=== PATIENT | male | born 1990 | race Hispanic/Latino ===

== ENCOUNTER 2024-03-19 09:16 | Emergency (ER) | payer SELFPAY ==
[~2024-03-19] VITALS: Ht 172.7 cm; Wt 58.5 kg
[2024-03-19 09:18] VITALS: BP 140/80; PULSE 114; RESP 18; TEMP 97.3
[2024-03-19] MEDS ORDERED: IBUP-2077 PO (12:13)
== END 2024-03-19 09:59 | disposition left against medical advice (07) ==
LOC: EDH 09:16
DX: G89.29 Other chronic pain (principal); M25.561 Pain in right knee; Z53.21 Procedure and treatment not carried out due to patient leaving prior to being seen by health care provider

== ENCOUNTER 2024-03-19 11:51 | Emergency (ER) | payer SELFPAY ==
[~2024-03-19] VITALS: Ht 172.7 cm; Wt 59.0 kg
[2024-03-19] MEDS ORDERED: IBUP-2077 PO (12:13)
--- NOTE | 2024-03-19 12:13 | ERN ---
ED Note History of Present Illness Stated Complaint: HEADACHE Time Seen by MD: 11:54 Dictation: PATIENT IS A 33-YEAR-OLD MALE COMING IN TODAY WITH COMPLAINTS OF A FRONTAL HEADACHE AND SINUS PRESSURE HE HAS HAD FOR SEVERAL DAYS AND HE FEELS IT IN HIS FRONTAL LOBE. NO FEVER NO CHILLS NO NAUSEA VOMITING NO SINUS CONGESTION. NO LOSS OF TASTE OR SMELL DOES NOT HAVE A PRIMARY CARE DOCTOR. WHEN I ASKED HIM IF HE HAD TAKEN ANYTHING FOR PAIN, HE STATES NO BECAUSE I CAN FEEL THE ASPIRIN OR TYLENOL COME THROUGH MY POISON I CAN SMELL AT. [facility] IS 0 Allergies: Coded Allergies: No Known Drug Allergies (Unverified Allergy, Unknown, 03/19/24) Past Medical History Past Medical History: No Pertinent History Surgical History: None PSYCH History: no pertinent psych hx RN Note Reviewed/Agreed w/PFSH: Yes Review of System Dictation CONSTITUTIONAL: NEGATIVE EXCEPT FOR HPI HEAD/FACE: NEGATIVE EXCEPT FOR HPI EENT: NEGATIVE EXCEPT FOR HPI RESPIRATORY: NEGATIVE EXCEPT FOR HPI GASTROINTESTINAL/ABDOMINAL: NEGATIVE EXCEPT FOR HPI GENITOURINARY: NEGATIVE EXCEPT FOR HPI MUSCULOSKELETAL: NEGATIVE EXCEPT FOR HPI INTEGUMENTARY: NEGATIVE EXCEPT FOR HPI NEUROLOGICAL/PSYCH: NEGATIVE EXCEPT FOR HPI FRONTAL SINUS HEADACHE HEMATOLOGIC/LYMPHATIC: NEGATIVE EXCEPT FOR HPI ALL SYSTEMS NEGATIVE, EXCEPT NOTED ABOVE. 13 POINT REVIEW OF SYSTEMS ASSESSED AND ALL NEGATIVE EXCEPT FOR ABOVE. Physical Exam Dictation VITAL SIGNS REVIEWED GENERAL APPEARANCE: ALERT, ORIENTED X 3, MILD ACUTE DISTRESS, WELL DEVELOPED, NOURISHED. HEAD AND FACE: NON-TRAUMATIC. BILATERAL FRONTAL SINUS TENDERNESS WITH PALPATION EYES: PERRL, PINK CONJUNCTIVAS, EYELID NO TRAUMA, ANTERIOR CHAMBER WITH ARCUS SENILIS. EARS: PINNAS INTACT AND NO SIGNS OF TRAUMA OR ERYTHEMA EAR CANALS CLEAR AND NO DISCHARGE TM NO ERYTHEMA NOSE: NO DISCHARGE, NO BLEEDING. OROPHARYNX: MOUTH NORMAL, TONGUE PINK, PHARYNX CLEAR,NO ERYTHEMA, TONSILS NO EXUDATES, NO ABSCESSES NOTED, MUCOUS MEMBRANE MOIST NECK: SUPPLE, NON-TENDER, NO THYROMEGALY, NO MASSES, NO JVD, NO BRUITS BREAST:DEFERRED CHEST:NO TENDERNESS, NO CREPITUS, NO PARADOXICAL MOVEMENT, NO RETRACTIONS LUNGS:CLEAR, WELL-VENTILATED, SYMMETRIC, NO RALES, NO WHEEZING, NO RHONCHI, NO STRIDOR, GOOD BREATH SOUNDS BILATERALLY HEART: REGULAR RATE, REGULAR RHYTHM, NO MURMUR, NO GALLOPS VASCULAR: NO PERIPHERAL EDEMA, ABDOMEN: SOFT, POSITIVE BOWEL SOUNDS, NONDISTENDED, NO GUARDING, NONTENDER, NO REBOUND, NO MASSES NO HEPATOMEGALY, NO SPLENOMEGALY, NO MASON'S SIGN, NO HERNIAS. RECTAL: DEFERRED GENITAL: DEFERRED NEUROLOGICAL: NORMAL SPEECH, MOTOR FUNCTION INTACT, SENSORY FUNCTION INTACT [facility] IS 0 MUSCULOSKELETAL: NECK NONTENDER, FULL RANGE OF MOTION, BACK NONTENDER, FULL RANGE OF MOTION, EXTREMITIES: NONTENDER, FULL RANGE OF MOTION SKIN: COLOR PINK, DRY, NO TURGOR, NO RASH, NO LACERATIONS, NO ABRASIONS, NO CONTUSIONS. LYMPHATIC: DEFERRED Results (Laboratory/Radiology) Labs Reviewed?: Yes ED Course ED Course Orders Procedure Category Date Status Time Ketorolac 60mg/2ml PHA 03/19/24 Transmitted (Toradol 60mg/2ml) 12:30 TWELVE 10, NO LABS OR IMAGING INDICATED WE WILL TREAT PATIENT FOR PAIN AND DISCHARGED WITH LIST OF DOCTORS AND IBUPROFEN. Medical Decision Making MDM MEDICAL DISCHARGE MAKING BASED ON EMPIRIC TREATMENT FOR A SINUS HEADACHE WITH A AN NSAID. PATIENT DISCHARGED HOME WITH IBUPROFEN AND LIST OF PRIMARY CARE DOCTORS TO FOLLOW UP WITH THE NEXT 1-2 DAYS. [facility] IS 0 NEUROLOGICALLY INTACT DX & DISP Disposition: Discharge Departure Impression: Primary Impression: Sinus headache Condition: Stable Scripts Ibuprofen (Ibuprofen 800 mg Tab) 800 Mg Tab 800 MG PO Q8H PRN for fever or pain, #30 TAB 0 Refills Prov: PRADEEP SINGLETARY BRIDGE [employer]CH[employer]IC 03/19/24 Additional Instructions: FOLLOW-UP WITH PRIMARY CARE PROVIDER IN 1 TO 2 DAYS. TAKE MEDICATIONS DIRECTED HERE IN THE EMERGENCY ROOM. OKAY TO CONTINUE HOME MEDICATIONS UNLESS OTHERWISE DISCUSSED DURING YOUR VISIT IN THE EMERGENCY ROOM TODAY. RETURN TO YOUR NEAREST EMERGENCY ROOM IF SYMPTOMS WORSEN OR IF THERE IS NO IMPROVEMENT. CALL 911 IF YOU NEED IMMEDIATE ASSISTANCE. TAKE TYLENOL OR MOTRIN [id number] NEEDED AND IF NO CONTRAINDICATIONS ARE PRESENT. INCREASE OR AL HYDRATION. A WOUND CULTURE OR URINE CULTURE WAS ORDERED HERE IN THE EMERGENCY ROOM DEPARTMENT PLEASE FOLLOW-UP WITH PRIMARY CARE PROVIDER AND ADVISE THEM TO GET REPEAT PORTS FROM OUR FACILITY. IF YOU HAD ANY HERMELINDA WRAP/SPLINTS THAT WERE APPLIED HERE, PLEASE DO NOT REMOVE THEM UNTIL YOU SEE YOUR PRIMARY CARE OR SPECIALTY. TAKE IBUPROFEN DIRECTED FOR PAIN WITH FOOD. INCREASE YOUR FLUID INTAKE AND SEE YOUR PRIMARY CARE DOCTOR OR FOLLOW UP WITH ONE Referrals: SELF,REFERRAL (PCP) Time of Disposition: 12:12 I have reviewed the case, and I agree with, Diagnosis and Plan PRADEEP SINGLETARY NP Mar 19, 2024 12:13
[2024-03-19] MEDS: ketOROlac 60 MG VIAL (30MG/ML) IM ONE (13:13)
[2024-03-19 13:40] VITALS: BP 122/59; PULSE 78; RESP 16; TEMP 98.1; O2SAT 98
== END 2024-03-19 13:41 | disposition home or self-care (01) ==
LOC: EDH 11:51
DX: R51.9 Headache, unspecified (principal)
CPT/HCPCS: 99283; 96372; J1885

== ENCOUNTER 2024-12-01 21:38 | Inpatient (IN) | payer SELFPAY ==
[~2024-12-01] VITALS: Ht 172.7 cm; Wt 67.9 kg
[~2024-12-01 21:38] MED LIST: IBUP-2077 PO
[2024-12-01 22:00] LABS: IMMATURE GRANULOCYTE ABSOLUTE 0.01 K/uL (0-1); NUCLEATED RED BLOOD CELLS 0.0 % (0.0-0.19); PLATELET COUNT (AUTO) 141 K/uL (130-400); RED BLOOD CELL COUNT(AUTO) 5.42 MIL/uL (4.50-6.20); RED CELL DISTRIBUTION WIDTH 11.9 % (11.0-15.5); WHITE BLOOD COUNT (AUTO) 6.3 K/uL (4.8-10.8)
[2024-12-01 22:07] LABS: CREATININE 0.9 mg/dL (0.5-1.3); GLOMERULAR FILTR. RATE CALC 116.0 mL/min (>90); GLUCOSE,RANDOM 91.0 mg/dL (70-105); SODIUM SERUM 142.0 mmol/L (136-145); UREA NITROGEN, BLOOD 13.0 mg/dL (7-18)
--- NOTE | 2024-12-01 22:29 | ERN ---
ED Note History of Present Illness Stated Complaint: CHEST PAIN Chief Complaint: Chest Pain Time Seen by MD: 21:46 Dictation: This is a 34-year-old male who presented to the emergency room with complaints of chest pain. And dyspnea even with minimal exertion going on for the past few weeks. He stated that about a month ago he overdosed on" bunch of pills" and alcohol intentionally and he was admitted eventually to psychiatric facility. Patient stated that since his discharge his stomach has never felt the same. He started drinking and smoking again. He stated that any flight of stairs or holding his get her and playing it is exhausting him and he experiences dyspnea. He also admits to some palpitations with any activity. No presyncope or syncopal episodes. No cough sputum or hemoptysis. Does have a history of bloating gastroesophageal symptoms. He has been taking [id number] generic medication for his heartburn and indigestion symptoms. He also stated that he could not afford the medication for depression and has been getting Prozac from [place]. Temperature 98 pulse 125 respirations 18 blood pressure 136/95 with a pulse oximetry of 96% on room air Allergies: Coded Allergies: No Known Drug Allergies (Unverified Allergy, Unknown, 03/19/24) Home Meds Active Scripts Ibuprofen (Ibuprofen 800 mg Tab) 800 Mg Tab, 800 MG PO Q8H PRN for fever or pain, #30 TAB 0 Refills Prov:PRADEEP SINGLETARY Malina ARROYO 03/19/24 Past Medical History Past Medical History: No Pertinent History, GERD Surgical History: None Family History: Negative Social History: Smokers, Drugs (History of crack), ETOH RN Note Reviewed/Agreed w/PFSH: Yes Review of System Dictation Constitutional: Negative for fever,chills, and weight loss Eyes: Negative for injury, pain,redness, and discharge ENT: Negative for injury,pain or swelling Cardiovascular: Positive for chest pain, palpitations, and edema Respiratory: Negative for shortness of breath, cough, and wheezing, Abdomen/GI: Negative for abdominal pain, nausea, vomiting, diarrhea, and constipation Back: Negative for injury and pain : Negative for injury, bleeding and discharge MS/Extremity: Negative for injury and deformity Skin: Negative for rash, and discoloration Neuro: Negative for headache, weakness, numbness, tingling, and seizure Psych: Negative for suicide ideation, homicidal ideation, and hallucinations Initial Vital Sign VS Vital Signs Date Time Temp Pulse Resp B/P (MAP) Pulse Ox O2 Delivery O2 Flow Rate FiO2 12/01/24 21:40 98.1 125 18 136/95 96 Room Air 0 12/01/24 22:52 21 Physical Exam Dictation General: awake, alert, NAD Head/Face: Normocephalic, atraumatic Eyes: PERRL, EOMI, vision at baseline ENT: oral cavity clear, TMs clear, no signs of infection Neck: Trachea midline, supple, no nuchal rigidity Cardiovascular: RRR, normal S1/S2, No MRGs, no JVD Respiratory: CTAB, no respiratory distress, No rales or wheezes Abdomen: Soft, non-tender, non-distended, normal bowel sounds, no guarding or rebound. Skin: Warm, dry, normal turgor, no rash MS/Extremity: Pulses equal, no cyanosis, neurovascular intact, FROM Neuro: COAx4, GCS 15, strength 5/5, CN 2-12 intact, normal cerebellar exam, normal gait, Psych: Normal behavior, mood, and affect normal Extremities-trace edema without any palpable cords, Homans sign is negative Results (Laboratory/Radiology) Laboratory/Radiology Laboratory Tests Test 12/01/24 21:51 12/01/24 22:43 White Blood Count 6.3 K/uL (4.8-10.8) Red Blood Count 5.42 MIL/uL (4.50-6.20) Hemoglobin 16.9 g/dL (14.0-18.0) Hematocrit 47.2 % (42-54) Mean Corpuscular Volume 87.1 fL (79-99) Mean Corpuscular Hemoglobin 31.2 pg (27.0-33.0) Mean Corpuscular Hemoglobin Concent 35.8 g/dL (32.0-36.0) Red Cell Distribution Width 11.9 % (11.0-15.5) Platelet Count 141 K/uL (130-400) Mean Platelet Volume 10.8 fL (7.5-10.5) H Immature Granulocyte % (Auto) 0.2 % (0-1) Neutrophils (%) (Auto) 51.3 % (40.0-77.0) Lymphocytes (%) (Auto) 30.3 % (21.0-51.0) Monocytes (%) (Auto) 15.6 % (3.0-13.0) H Eosinophils (%) (Auto) 2.1 % (0.0-8.0) Basophils (%) (Auto) 0.5 % (0.0-5.0) Neutrophils # (Auto) 3.2 K/uL (1.8-7.7) Lymphocytes # (Auto) 1.9 K/uL (1.0-4.8) Monocytes # (Auto) 1.0 K/uL (0.1-1.0) Eosinophils # (Auto) 0.13 K/uL (0.00-0.70) Basophils # (Auto) 0.03 K/uL (0.00-0.20) Absolute Immature Granulocyte (auto 0.01 K/uL (0-1) Nucleated Red Blood Cells 0.0 % (0.0-0.19) White Cell Morphology Comment See comments Sodium Level 142 mmol/L (136-145) Potassium Level 3.9 mmol/L (3.5-5.1) Chloride Level 104 mmol/L (101-111) Carbon Dioxide Level 26 mmol/L (21-32) Blood Urea Nitrogen 13 mg/dL (7-18) Creatinine 0.9 mg/dL (0.5-1.3) Glomerular Filtration Rate Calc 116 mL/min (>90) Random Glucose 91 mg/dL (70-105) Total Calcium 9.9 mg/dL (8.5-10.1) Total Creatine Kinase 71 U/L (21-232) Troponin I High Sensitivity 5 ng/L (4-75) Urine Color YELLOW (YELLOW) Urine Appearance CLEAR (CLEAR) Urine pH 6.0 (5.0-8.0) Urine Specific Avenel 1.027 (1.001-1.031) Urine Protein NEGATIVE mg/dL (NEGATIVE) Urine Glucose (UA) NEGATIVE mg/dL (NEGATIVE) Urine Ketones NEGATIVE mg/dL (NEGATIVE) Urine Occult Blood SMALL (NEGATIVE) H Urine Nitrate NEGATIVE (NEGATIVE) Urine Bilirubin NEGATIVE mg/dL (NEGATIVE) Urine Urobilinogen 0.2 mg/dL (0.2-1.0) Urine Leukocyte Esterase NEGATIVE Guy/uL Urine RBC 2-5 /HPF (0-1) H Urine WBC 0-1 /HPF (0-1) Urine Bacteria RARE /HPF (None Seen) Urine Opiates Screen NEGATIVE (NEGATIVE) Urine Barbiturates Screen NEGATIVE (NEGATIVE) Urine Phencyclidine Screen NEGATIVE (NEGATIVE) Urine Amphetamines Screen NEGATIVE (NEGATIVE) Urine Benzodiazepines Screen NEGATIVE (NEGATIVE) Urine Cocaine Screen NEGATIVE (NEGATIVE) Urine Marijuana (THC) Screen POSITIVE (NEGATIVE) H Labs Reviewed?: Yes EKG Comment: Twelve lead EKG done on 12/01/2024 at 9:39 p.m. showed a heart rate of 92, MI interval 128, QRS 87, QT/QTC 342/424. Impression normal sinus rhythm with a repolarization changes in the septal and lateral leads. EKG rhythm strip shows a normal sinus rhythm with nonspecific ST-T changes. Interpreted by ER MD Dr. Funes ED Course ED Course Orders Procedure Category Date Status Time Cbc With Differential LAB 12/01/24 Complete 21:49 Chest 1vw RAD 12/01/24 Resulted 21:49 Troponin I High LAB 12/01/24 Complete Sensitivity 21:49 Urinalysis Profile LAB 12/01/24 Complete 21:49 Basic Metabolic Panel LAB 12/01/24 Complete 21:49 Drug Screen Urine LAB 12/01/24 Complete 21:49 12 Lead Ekg Tracing- EKG 12/01/24 Logged Technical 21:52 Creatine Kinase, Total LAB 12/01/24 Complete 21:53 Methylprednisolone PHA 12/01/24 Complete Succ 125mg (Solu-Medr 23:30 Ipratropium/Albuterol PHA 12/01/24 Complete Neb (Duoneb) 23:30 Ketorolac PHA 12/01/24 Complete Tromethamine 15mg/Ml 23:30 Ondansetron 4mg Inj PHA 12/01/24 Complete (Zofran 4mg Inj) 23:30 Famotidine 20mg Tab PHA 12/01/24 Complete (Pepcid 20mg Tab) 23:30 M.V.I. Iv [Adult] PHA 12/01/24 In Process (M.V.I. Iv [Adult])... 23:30 Current Medications Medications (Trade) Dose Ordered Sig/Rony Route PRN Reason Start Time Stop Time Status Last Admin Dose Admin Albuterol (DUOneb) 1 UDVIAL ONCE ONCE IH 12/01/24 23:30 12/01/24 23:31 DC 12/01/24 23:54 Famotidine (Pepcid 20mg Tab) 20 mg ONCE ONCE PO 12/01/24 23:30 12/01/24 23:31 DC 12/02/24 00:21 Ketorolac Tromethamine (toRADol) 15 mg ONCE ONCE IV 12/01/24 23:30 12/01/24 23:31 DC 12/02/24 00:21 Methylprednisolone Sodium Succinate (Solu-medROL 125MG) 60 mg ONCE ONCE IVP 12/01/24 23:30 12/01/24 23:31 DC 12/02/24 00:20 Multivitamins/ Minerals 10 ml/ Folic Acid 1 mg/ Thiamine HCl 100 mg/Sodium Chloride 1,010 ml @ 100 mls/hr Q24H IV 12/01/24 23:30 12/04/24 09:35 12/01/24 23:49 Ondansetron HCl (zoFRAN 4MG INJ) 4 mg ONCE ONCE IVP 12/01/24 23:30 12/01/24 23:31 DC 12/02/24 00:20 Vital Signs Date Time Temp Pulse Resp B/P (MAP) Pulse Ox O2 Delivery O2 Flow Rate FiO2 12/02/24 02:20 92 18 106/66 97 Room Air* 0 21 12/02/24 01:03 98 18 115/72 98 Room Air* 0 21 12/01/24 23:54 89 18 12/01/24 22:52 91 18 126/86 98 Room Air* 0 12/01/24 21:40 98.1 125 18 136/95 96 Room Air 0 We will perform diagnostic labs, imaging and administer medications according to the patient's complaint. Once the results are available, will review and pe rsonally interpreted the labs to rule out any acute life-threatening emergency the trach require immediate intervention and treatment. I will then re-evaluate the patient after treatment and diagnostic exams have return to determine whether the patient requires any further testing, can safely be discharged home or need further admission to hospital for additional treatment and evaluation. 3:00 a.m. patient accepted by Alan Schmidt mid-level provider for hospitalist group for admission and management HEART Score Response (Comments) Value History: Low suspicion (0) 0 EKG: Repolarization changes 1 Age: < 45yrs (0) 0 Risk Factors: No known risk factors (0) 0 Initial Troponin: Normal limit (0) 0 HEART Score Risk: Low Risk for MACE (1-3) Total 1 Medical Decision Making MDM Differential diagnosis: Esophagitis, gastroesophageal reflux disease, hiatal hernia, gastritis, pericarditis, costochondritis, pleurisy, angina, chest pain and palpitations could also be early alcohol withdrawal. This is a 34-year-old male who presented to the emergency room with complaints of chest pain. And dyspnea even with minimal exertion going on for the past few weeks. He stated that about a month ago he overdosed on" bunch of pills" and alcohol intentionally and he was admitted eventually to psychiatric facility. Patient stated that since his discharge his stomach has never felt the same. He started drinking and smoking again. He stated that any flight of stairs or holding his get her and playing it is exhausting him and he experiences dyspnea. He also admits to some palpitations with any activity. No presyncope or syncopal episodes. No cough sputum or hemoptysis. Does have a history of bloating gastroesophageal symptoms. He has been taking xldx-qwz-fstcgyv generic medication for his heartburn and indigestion symptoms. He also stated that he could not afford the medication for depression and has been getting Prozac from [place]. Temperature 98 pulse 125 respirations 18 blood pressure 136/95 with a pulse oximetry of 96% on room air 10:54 p.m. labs reviewed CBC is with a normal limits BNP 7 is unremarkable troponins are negative CK 71. Chest x-ray shows mild hyperinflation dirty lungs of possibly bronchitis. 11:00 p.m.-gave a trial of Toradol Pepcid as well as steroids with a DuoNeb treatment. 12:00 p.m. patient states that he continues to have off and on chest pain but he does admit to feeling some better with steroid and bronchodilator I had a long discussion with the patient that some of his symptoms could be related to pulmonary issues including his cigarette smoking, vaping might have caused bronchiolitis symptoms. He has been homeless and on some money by playing his guitar. He also lacks transportation. 2:00 a.m. patient stated that he was still nauseated although the chest pain was better with the medications. He also admits to breathing treatments helping him. I recommended admission to the hospital overnight and monitor for also for alcohol withdrawal symptoms. Rationale: Tests considered and ordered secondary to shared decision making incl ude: labs, ECG and radiology Previous outside records reviewed: Old ER visits. Risk of complication and/or morbidity or mortality of patient management: None Medications-Per medication reconciliation Need for hospitalization: Patient does meet criteria for hospitalization. Need for emergency major/minor surgery: No There are social concerns with this patient.-homelessness, lack of funding, substance abuse with no stable psychosocial support Prescription drug management Prescriptions will include symptomatic care Patient's prior external medical records from other ER visits were reviewed by me as indicated. Prior testing and results from previous visits were reviewed. Prior tests were taken into account with medical decision making and resource utilization, independent historian/historians were used to obtain complete medical history. I independently interpreted the test that were performed, results were reviewed by me and considered findings on radiology if ordered. Medical management and examination interpretation discussions were had by me with other qualified healthcare professionals as indicated for the patient's care. Problem List Problem List: (1) Atypical chest pain (2) GERD (gastroesophageal reflux disease) (3) Reactive airway disease (4) Acute bronchitis DX & DISP Disposition: Inpatient Departure Impression: Primary Impression: Atypical chest pain Additional Impressions: Reactive airway disease, GERD (gastroesophageal reflux disease), Acute bronchitis Condition: Stable Additional Instructions: Patient was informed of all the diagnostic labs and procedures conducted in the emergency room today and demonstrated understanding of the results. I personally reviewed and interpreted all the diagnostic exams performed in the ER today. The patient will be admitted to the hospital for further treatment and evaluation. Disposition-admit to facility Condition-stable/guarded Course-uncertain at this time Pain status-decreased Assessment-exam unchanged Admission Certification- I certify that the patients status is appropriate and is based on my best clinical judgment and the patient's condition as documented in the medical records Referrals: SELF,REFERRAL (PCP) RAINER FUNES MD Dec 01, 2024 22:29
[2024-12-01 23:02] LABS: ADD UA MICROSCOPIC YES; APPEARANCE,URINE CLEAR (CLEAR); GLUCOSE, URINE (UA) NEGATIVE (NEGATIVE); LEUKOCYTE ESTERASE ,URINE NEGATIVE Leu/uL (NEGATIVE); NITRATE,URINE NEGATIVE (NEGATIVE); OCCULT BLOOD,URINE SMALL (NEGATIVE)
[2024-12-01 23:08] LABS: AMPHET/METH SCREEN,URINE NEGATIVE (NEGATIVE); BARBITURATE SCREEN, URINE NEGATIVE (NEGATIVE); CANNABINOID SCREEN,URINE POSITIVE (NEGATIVE); COCAINE SCREEN,URINE NEGATIVE (NEGATIVE)
--- NOTE | 2024-12-01 23:38 | HMCIMG ---
EXAM: CR Chest, 1 View. CLINICAL HISTORY: Chest pain COMPARISON: None provided. FINDINGS: LUNGS: The lungs show no infiltrate or other acute finding. PLEURAL SPACES: No evidence of pleural effusion or pneumothorax. MEDIASTINUM: Cardiac size and mediastinal contours within normal limits. BONES: No aggressive appearing osseous lesion seen. IMPRESSION: No acute cardiopulmonary pathology is evident. /[place]
[2024-12-01] MEDS: M.V.I. IV [ADULT] 10 ML, FOLic ACID 5 MG/ML VIAL 1 MG, THIAMINE HCL 100 MG in 0.9%NACL ... IV SCH (23:49)
[2024-12-01 23:54] VITALS: PULSE 89; RESP 18
[2024-12-02] VITALS (11 sets, daily range): BP systolic 107–144; BP diastolic 69–75; PULSE 62–100; RESP 17–20; TEMP 97.9–98.5; O2SAT 95–99
[2024-12-02] MEDS: FAMOTIDINE 20MG TAB PO ONE (00:21)
--- NOTE | 2024-12-02 03:10 | HP ---
History of Present Illness Reason for Visit: chest pain History of Present Illness Mr. Rodrigues is a 34-year-old male that was seen and examined today on 12/02/2024. Patient reports that he came to the emergency department with a chief complaint of chest pain. Onset was three weeks ago. Location "right were my heart is" D uration is on and off. Character is described as pressure. There was no alleviating factors. There was no aggravating factors. Patient reports associated shortness of breath. Today in the emergency department CBC unremarkable, chemistry unremarkable, troponin unremarkable x2 checks, urinalysis unremarkable, urine drug screen is positive for marijuana, chest x- ray is unremarkable. Emergency room physician recommended that patient be admitted with a diagnosis of chest pain. Past Medical History ADDITIONAL PAST MEDICAL HISTORY: Denies] SOCIAL HISTORY: [Positive for smoking, alcohol use. Patient admits to marijuana use. Patient states he has been alternating between living with his mother and stayed over at his friend's house. Patient is typically independent of his ADLs. Patient denies difficulty pain is bills. SURGICAL HISTORY: [Denies] Review of Systems General: No Fever, No Chills, No Night Sweats, No Fatigue, No Malaise, No Appetite, No Other HEENT: No Head Aches, No Visual Changes, No Eye Pain, No Ear Pain, No Dysphasia, No Sinus Congestion, No Post Nasal Drip, No Sore Throat, No Other Pulmonary: Dyspnea; No Cough, No Pleuritic Chest Pain, No Other Cardiovascular: Chest Pain; No: Palpitations, Orthopnea, Paroxysmal Noc. Dyspnea, Edema, Lt Headedness, Other Gastrointestinal: No: Nausea, Vomiting, Abdominal Pain, Diarrhea, Constipation, Melena, Hematochezia, Other Genitourinary: No Dysuria, No Frequency, No Incontinence, No Hematuria, No Retention, No Other Musculoskeletal: No: other, neck pain, shoulder pain, arm pain, back pain, hand pain, leg pain, foot pain Skin: No Urticaria, No Rash, No Other Neurological: No: Weakness, Numbness, Incoordination, Change in speech, Confusion, Seizures, Other Allergies: Coded Allergies: No Known Drug Allergies (Unverified Allergy, Unknown, 03/19/24) Scheduled PRN Ibuprofen (Ibuprofen 800 mg Tab), 800 MG PO Q8H PRN for fever or pain Exam Vital Signs Vital Signs Date Time Temp Pulse Resp B/P (MAP) Pulse Ox O2 Delivery O2 Flow Rate FiO2 12/02/24 02:20 92 18 106/66 97 Room Air* 0 21 12/01/24 21:40 98.1 General Appearance: Alert, Oriented X3, Cooperative, No acute distress HEENT: Atraumatic, EOMI Respiratory: Clear to auscultation, Normal air movement, NL respiratory effort Cardiovascular: Regular rate, Regular rhythm, Normal S1, Normal S2 Abdominal: Normal bowel sounds, Soft, No tenderness Extremities: No edema Skin: No breakdown, No significant lesion Neuro: Normal gait, Normal speech, Strength at 5/5 X4 ext, Sensation intact, Cranial nerves 3-12 NL Psych/Mental Status: Mental status NL, Mood NL, Thoughts/Content NL Assessment/Plan ASSESSMENT: [ Chest pain, POA Shortness of breath, POA Depression, POA] PLAN: Admit patient to medical floor as inpatient status. Place patient on telemetry monitoring. Administer aspirin 162 mg by mouth times 1 dose Continue aspirin 81 mg by mouth once daily Nitropaste 0.5 inches anterior chest wall every 8 hours Trend troponin every 6 hours x 3 sets Supplemental oxygen to maintain O2 saturation greater than 92% Consult cardiology if any elevation in troponin or troponin uptrending, or if patient deemed to need stress test by daytime rouding service. DuoNebs every 6 hours Supportive treatment with a guaifenesin dextromethorphan, Tylenol Tele psych eval in a.m. GI prophylaxis, famotidine DVT prophylaxis, Lovenox ADVANCED CARE PLANNING 1. Which of the following were discussed? Hospice Care - Yes Therapeutic options - yes Advance Directives - Yes - patient states he does not have any advance directives in place at this time. Patient states his mom, Sydney Rodrigues. Can make decisions for him if he becomes unable. Other discussions - patient wishes to remain a full code 2. Discussed with who? Patient 3. Voluntary nature of this service was explained to the patient? Yes 4. Amount of time spent - ___16 minutes____ 5. Reviewed by Physician? (if this service was performed by NPP) Yes This document was generated in part using voice recognition software, occasional wrong word or sound alike substitutions may have occurred due to the inherent limitations of voice recognition software. Read the chart carefully and recognize using context, where the substitutions have occurred. Although every effort was made to edit the content, biometric technician and typing errors may occur ATTESTATION BY PHYSICIAN I have seen and examined the patient. I reviewed the documentation, medical decision making, and treatment plan as noted by the mid-level provider above. I agree with the findings and plan of care. ARTEMIO DAN [facility] Dec 02, 2024 03:10
[2024-12-02] MEDS ORDERED: guaiFENesin-DM 200/20MG 10ML PO PRN (03:30)
[2024-12-02] MEDS ORDERED: LACTULOSE 20 GM/30 ML UDCUP PO PRN (03:30)
[2024-12-02] MEDS: AZITHROMYCIN 250 MG TABLET PO ONE (03:32)
[2024-12-02] MEDS: ASPIRIN 81MG CHEW TAB PO ONE (03:32)
[2024-12-02 05:13] LABS: IMMATURE GRANULOCYTE ABSOLUTE 0.02 K/uL (0-1); NUCLEATED RED BLOOD CELLS 0.0 % (0.0-0.19); PLATELET COUNT (AUTO) 142 K/uL (130-400); RED BLOOD CELL COUNT(AUTO) 5.29 MIL/uL (4.50-6.20); RED CELL DISTRIBUTION WIDTH 12.0 % (11.0-15.5); WHITE BLOOD COUNT (AUTO) 5.6 K/uL (4.8-10.8)
[2024-12-02] MEDS ORDERED: FLUO20CA32 PO (05:27)
[2024-12-02 05:29] LABS: CREATININE 0.9 mg/dL (0.5-1.3); GLOMERULAR FILTR. RATE CALC 116.0 mL/min (>90); GLUCOSE,RANDOM 120.0 mg/dL (70-105); PHOSPHORUS 3.3 mg/dL (2.5-4.9); SODIUM SERUM 139.0 mmol/L (136-145); UREA NITROGEN, BLOOD 14.0 mg/dL (7-18)
--- NOTE | 2024-12-02 07:06 | EKG ---
[facility] Test Date: 2024-12-01 Test Time: 21:39:40 Pat Name: MARINO HARMON Department: [facility] Room: 328 1 Gender: M Hr Administrator: [id number] : 1990 Requested By: RAINER CHOU Order Number: [id number] Reading MD: Eduin Tolliver Measurements Intervals Eastern Rate: 92 P: 49 CO: 128 QRS: 71 QRSD: 87 T: 44 QT: 342 QTc: 424 Interpretive Statements Sinus rhythm ST elev, probable normal early repol pattern No previous ECG available for comparison Electronically Signed On 12-03-2024 06:53:42 CDT by Eduin Tolliver Please click the below link to view image of tracing.
[2024-12-02] MEDS: ASPIRIN 81 MG EC TAB PO SCH (09:53)
[2024-12-02] MEDS: ENOXAPARIN SODIUM 40 MG/0.4 ML SYRINGE SQ SCH (09:54)
[2024-12-02] MEDS: FAMOTIDINE 20MG TAB PO SCH (09:54)
--- NOTE | 2024-12-02 10:09 | NUR ---
DCP:HOMELESS/ MOM'S HOME Pt states that he has been homeless for the past 8-9 months. He states that there are time that he stays with a friend and other times he stays with his mom. 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 Pt does not report having DME, home health, or provider services. Pt states that when he finds a place to stay he will shower and change there. JEAN-PAUL provided him information [facility] however he stated that he will not go and apply because he doesn't "need it" and would rather families get the assistance. JEAN-PAUL also offered him substance abuse resources however he states that he "doesn't find it necessary at this time" and has been to a rehab in the past and checked himself out. Pt states that when he is ready to stop he will go to his mom's and "see how long I can be sober". Pt did accept resources for medical attention. At [place] pt states that he will go "play my guitar for tips until my fingers give out and then make my way to my moms". Addendum: 12/02/24 at 1015 by OLIVER BUTT SS Amended: Links added.
--- NOTE | 2024-12-02 10:46 | CONS ---
CONSULT NOTE: Reason for consult: depression Reason for medical admission: Patient is a 34 yo male who was admitted with chief complaint of chest pain. Onset was three weeks ago. Location "right were my heart is" Duration is on and off. Character is described as pressure. There was no alleviating factors. There was no aggravating factors. Patient reports associated shortness of breath. Today in the emergency department CBC unremarkable, chemistry unremarkable, troponin unremarkable x2 checks, urinalysis unremarkable, urine drug screen is positive for marijuana, chest x- ray is unremarkable. Emergency room physician recommended that patient be admitted with a diagnosis of chest pain. Per case management note: Pt states that he has been homeless for the past 8-9 months. He states that there are time that he stays with a friend and other times he stays with his mom. 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 Pt does not report having DME, home health, or provider services. Pt states that when he finds a place to stay he will shower and change there. JEAN-PAUL provided him information on housing/shelters in [facility] however he stated that he will not go and apply because he doesn't "need it" and would rather families get the assistance. JEAN-PAUL also offered him substance abuse resources however he states that he "doesn't find it necessary at this time" and has been to a rehab in the past and checked himself out. Pt states that when he is ready to stop he will go to his mom's and "see how long I can be sober". Pt did accept resources for medical attention. At [place] pt states that he will go "play my guitar for tips until my fingers give out and then make my way to my moms". CC: "doing well, just a slight headache" HPI: Patient states he came to the ED for chest pain. He reports that he took a bunch of pills a month ago because he was in a lot of pain. He says this was a suicide attempt. He was psychiatrically hospitalized after the attempt. He has had several previous suicide attempts. Patient was started on Prozac but he stopped taking it. He says she was doing alright and then he started drinking really heavily last week. He had been drinking alcohol and smoking last night when he had the chest pain. 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 He denied any issues with sadness or depression. He just feels physically bad. He reports he feels out of breath and he is having some pain. He states he "lived off of booze for like a week." He states he is able to contract for safety of self and others. He denied HI. He is very odd and does make strange statements. He denied issues with AVH and parnaoia but he denied any currently. He is agreeable to restart Prozac for depression 20 mg daily. Home psychiatric medications: Prozac Previous medication trials: Mariana Mitchell Patient reports he does have hx of inpatient psychiatric admissions in the past. Vital Signs Date Time Temp Pulse Resp B/P (MAP) Pulse Ox O2 Delivery O2 Flow Rate FiO2 12/02/24 08:00 98.4 100 19 144/75 95 Room Air 21 12/02/24 05:57 0 Current Medications Medications Dose Ordered Sig/Rony Start Time Stop Time Status Last Admin Multivitamins/ Minerals 10 ml/ Folic Acid 1 mg/ Thiamine HCl 100 mg/Sodium Chloride 1,010 ml @ 100 mls/hr Q24H 12/01/24 23:30 12/04/24 09:35 12/01/24 23:49 Acetaminophen 650 mg Q6H PRN 12/02/24 03:30 01/01/25 03:29 Aspirin 81 mg DAILY 12/02/24 09:00 01/01/25 08:59 12/02/24 09:53 Albuterol 1 UDVIAL [id number] 12/02/24 06:00 01/01/25 05:59 12/02/24 07:02 Enoxaparin Sodium 40 mg DAILY 12/02/24 09:00 01/01/25 08:59 12/02/24 09:54 Famotidine 20 mg DAILY 12/02/24 09:00 01/01/25 08:59 12/02/24 09:54 Guaifenesin/ Dextromethorphan 10 ml Q4H PRN 12/02/24 03:30 01/01/25 03:29 Hydralazine HCl 10 mg Q6H PRN 12/02/24 03:30 01/01/25 03:29 Lactulose 20 gm BID PRN 12/02/24 03:30 01/01/25 03:29 Morphine Sulfate 4 mg Q4H PRN 12/02/24 03:30 12/09/24 03:29 Ondansetron HCl 4 mg Q6H PRN 12/02/24 03:30 01/01/25 03:29 Laboratory Tests Test 12/01/24 21:51 12/01/24 22:43 12/02/24 05:04 12/02/24 09:43 White Blood Count 6.3 K/uL (4.8-10.8) 5.6 K/uL (4.8-10.8) Red Blood Count 5.42 MIL/uL (4.50-6.20) 5.29 MIL/uL (4.50-6.20) Hemoglobin 16.9 g/dL (14.0-18.0) 16.3 g/dL (14.0-18.0) Hematocrit 47.2 % (42-54) 46.5 % (42-54) Mean Corpuscular Volume 87.1 fL (79-99) 87.9 fL (79-99) Mean Corpuscular Hemoglobin 31.2 pg (27.0-33.0) 30.8 pg (27.0-33.0) Mean Corpuscular Hemoglobin Concent 35.8 g/dL (32.0-36.0) 35.1 g/dL (32.0-36.0) Red Cell Distribution Width 11.9 % (11.0-15.5) 12.0 % (11.0-15.5) Platelet Count 141 K/uL (130-400) 142 K/uL (130-400) Mean Platelet Volume 10.8 fL (7.5-10.5) H 10.9 fL (7.5-10.5) H Immature Granulocyte % (Auto) 0.2 % (0-1) 0.4 % (0-1) Neutrophils (%) (Auto) 51.3 % (40.0-77.0) 83.7 % (40.0-77.0) H Lymphocytes (%) (Auto) 30.3 % (21.0-51.0) 12.3 % (21.0-51.0) L Monocytes (%) (Auto) 15.6 % (3.0-13.0) H 3.0 % (3.0-13.0) Eosinophils (%) (Auto) 2.1 % (0.0-8.0) 0.2 % (0.0-8.0) Basophils (%) (Auto) 0.5 % (0.0-5.0) 0.4 % (0.0-5.0) Neutrophils # (Auto) 3.2 K/uL (1.8-7.7) 4.7 K/uL (1.8-7.7) Lymphocytes # (Auto) 1.9 K/uL (1.0-4.8) 0.7 K/uL (1.0-4.8) L Monocytes # (Auto) 1.0 K/uL (0.1-1.0) 0.2 K/uL (0.1-1.0) Eosinophils # (Auto) 0.13 K/uL (0.00-0.70) 0.01 K/uL (0.00-0.70) Basophils # (Auto) 0.03 K/uL (0.00-0.20) 0.02 K/uL (0.00-0.20) Absolute Immature Granulocyte (auto 0.01 K/uL (0-1) 0.02 K/uL (0-1) Nucleated Red Blood Cells 0.0 % (0.0-0.19) 0.0 % (0.0-0.19) White Cell Morphology Comment See comments Sodium Level 142 mmol/L (136-145) 139 mmol/L (136-145) Potassium Level 3.9 mmol/L (3.5-5.1) 4.4 mmol/L (3.5-5.1) Chloride Level 104 mmol/L (101-111) 105 mmol/L (101-111) Carbon Dioxide Level 26 mmol/L (21-32) 25 mmol/L (21-32) Blood Urea Nitrogen 13 mg/dL (7-18) 14 mg/dL (7-18) Creatinine 0.9 mg/dL (0.5-1.3) 0.9 mg/dL (0.5-1.3) Glomerular Filtration Rate Calc 116 mL/min (>90) 116 mL/min (>90) Random Glucose 91 mg/dL (70-105) 120 mg/dL (70-105) H Total Calcium 9.9 mg/dL (8.5-10.1) 8.9 mg/dL (8.5-10.1) Total Creatine Kinase 71 U/L (21-232) Troponin I High Sensitivity 5 ng/L (4-75) 5 ng/L (4-75) < 4 ng/L (4-75) L Urine Color YELLOW (YELLOW) Urine Appearance CLEAR (CLEAR) Urine pH 6.0 (5.0-8.0) Urine Specific [place] 1.027 (1.001-1.031) Urine Protein NEGATIVE mg/dL (NEGATIVE) Urine Glucose (UA) NEGATIVE mg/dL (NEGATIVE) Urine Ketones NEGATIVE mg/dL (NEGATIVE) Urine Occult Blood SMALL (NEGATIVE) H Urine Nitrate NEGATIVE (NEGATIVE) Urine Bilirubin NEGATIVE mg/dL (NEGATIVE) Urine Urobilinogen 0.2 mg/dL (0.2-1.0) Urine Leukocyte Esterase NEGATIVE Guy/uL Urine RBC 2-5 /HPF (0-1) H Urine WBC 0-1 /HPF (0-1) Urine Bacteria RARE /HPF (None Seen) Urine Opiates Screen NEGATIVE (NEGATIVE) Urine Barbiturates Screen NEGATIVE (NEGATIVE) Urine Phencyclidine Screen NEGATIVE (NEGATIVE) Urine Amphetamines Screen NEGATIVE (NEGATIVE) Urine Benzodiazepines Screen NEGATIVE (NEGATIVE) Urine Cocaine Screen NEGATIVE (NEGATIVE) Urine Marijuana (THC) Screen POSITIVE (NEGATIVE) H Phosphorus Level 3.3 mg/dL (2.5-4.9) Magnesium Level 2.00 mg/dL (1.80-2.40) MSE: Patient is a 34 yo male. He is alert and oriented x 3, NAD. Speech is fluent and gait is not evaluated. Eye contact is consistent. No AIMS or psychomotor disturbances. Mood is "great" and affect is pleasant and reactive. Thought process is mostly linear and goal directed. He does make tangential and odd statements at times. He denied current HI, SI, AVH. Memory and cognition seem to be at baseline. Insight and judgment are fair. Assessment: Unspecified depressive disorder Alcohol abuse Recommendations: -Patient is not currently suicidal, homicidal or psychotic and he does not require inpatient psychiatric admisison at this time. -Restart Prozac 20 mg daily -Please make referrals to [facility] for outpatient psychiatry, therapy, case management and substance abuse tx -Psychiatry signing off. *20 mins was spent [id number] with patient and 25 mins was spent on chart review and documentation JESSE SAVAGE DO Dec 02, 2024 10:46
[2024-12-02] MEDS ORDERED: COMPOUND IV REFRIGERATED 1 EACH IVSOLN MISC PRN (12:30)
[2024-12-02] MEDS ORDERED: COMPOUND IV MISC 1 EACH IVSOLN MISC PRN (12:30)
[2024-12-03] VITALS (10 sets, daily range): BP systolic 104–111; BP diastolic 63–71; PULSE 60–97; RESP 16–20; TEMP 98–98.5; O2SAT 97–99
--- NOTE | 2024-12-03 10:57 | EKG ---
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
[2024-12-03 11:11] LABS: NUCLEATED RED BLOOD CELLS 0.0 % (0.0-0.19); PLATELET COUNT (AUTO) 144.0 K/uL (130-400); RED BLOOD CELL COUNT(AUTO) 4.78 MIL/uL (4.50-6.20); RED CELL DISTRIBUTION WIDTH 12.3 % (11.0-15.5); WHITE BLOOD COUNT (AUTO) 6.8 K/uL (4.8-10.8)
[2024-12-03 11:16] LABS: CREATININE 0.8 mg/dL (0.5-1.3); GLOMERULAR FILTR. RATE CALC 121.0 mL/min (>90); GLUCOSE,RANDOM 92.0 mg/dL (70-105); SODIUM SERUM 142.0 mmol/L (136-145); UREA NITROGEN, BLOOD 17.0 mg/dL (7-18)
[2024-12-03 11:21] LABS: ASPARTATE AMINOTRANSFERASE 221.0 U/L (10-37); TOTAL PROTEIN, SERUM 6.4 g/dL (6.0-8.3)
[2024-12-03] MEDS ORDERED: FLUO20CA32 PO (15:54)
--- NOTE | 2024-12-03 15:59 | DS ---
Discharge Summary Hospital Course Summary: Reason for Admission: Chest pain Hospital Course: Mr. Rodrigues is a 34-year-old male admitted for evaluation of chest pain of three weeks duration, described as intermittent pressure over the precordium, associated with shortness of breath. Initial workup in the emergency department included: Cardiac workup: Serial troponins (x3) were negative. EKG and chest X-ray were unremarkable. Laboratory studies: CBC, chemistry panel, and urinalysis were unremarkable. Toxicology: Urine drug screen was positive for marijuana. Vital signs: Stable throughout admission. During hospitalization, the patient remained hemodynamically stable and did not experience any further chest pain or shortness of breath. No acute events were noted overnight. Given his history of depression and recent suicide attempt (per psychiatry con suljennifer), a psychiatric evaluation was obtained. The patient denied current suicidal or homicidal ideation, and was agreeable to restarting Prozac 20 mg daily. Outpatient psychiatric follow-up and substance abuse resources were recommended. Summary: Mr. Rodrigues was admitted for chest pain; cardiac workup was negative. Toxicology was positive for marijuana. Psychiatry was consulted due to history of depression and prior suicide attempt. The patient was stable throughout admission, with no recurrence of symptoms. He is safe for discharge with outpatient follow-up arranged. [employer] Panels Deburrer(s): Dr. Ole Solis- Psychiatrist Assessment/Plan: Admitting Diagnoses: [Chest pain, POA Depression Discharge Diagnoses: Chest pain, most consistent with musculoskeletal chest wall pain or costochondri tis or anxiety-related chest pain Discharge Instructions: Discharge Condition: Hemodynamically stable No chest pain or shortness of breath Mentally alert and oriented Ambulatory Discharge Medications: Continue Prozac 20 mg daily Aspirin 81 mg daily Other medications as per inpatient regimen (see MAR) Follow-Up Recommendations: Outpatient cardiology follow-up as needed Outpatient psychiatry and therapy (referral to [facility]) Substance abuse counseling resources provided Return to ED for any recurrence of chest pain, shortness of breath, or other acute symptoms Home Medications: Active Scripts Ibuprofen (Ibuprofen 800 mg Tab) 800 Mg Tab, 800 MG PO Q8H PRN for fever or pain, #30 TAB 0 Refills Prov:PRADEEP SINGLETARY 03/19/24 Reported Medications Fluoxetine HCl (Prozac) 20 Mg Cap, 1 CAP PO DAILY for 30 Days, #30 CAP 0 Refills 12/02/24 Time spent arranging discharge: 31-60 minutes ATTESTATION BY PHYSICIAN I have seen and examined the patient. I reviewed the documentation, medical decision making, and treatment plan as noted by the mid-level provider above. I agree with the findings and plan of care. Esmer Gonzales MD, [facility] Dec 03, 2024 15:59
== END 2024-12-03 18:01 | disposition home or self-care (01) | DRG 206 ==
LOC: EDH 21:38 → EDHIP 21:39 → 3DH 12-02 04:56
PROVIDERS: ADMIT Internal Medicine; ATTEND Internal Medicine
DX: M94.0 Chondrocostal junction syndrome [Tietze] (principal); Z59.00 Homelessness unspecified; J20.9 Acute bronchitis, unspecified; K21.9 Gastro-esophageal reflux disease without esophagitis; F32.A Depression, unspecified; F41.9 Anxiety disorder, unspecified; J45.909 Unspecified asthma, uncomplicated; F10.10 Alcohol abuse, uncomplicated; Z51.5 Encounter for palliative care; Z79.82 Long term (current) use of aspirin; Z91.51 Personal history of suicidal behavior
CPT/HCPCS: 36415; 71045; 80048; 80053; 80305; 81001; 82550; 83735; 84100; 84484; 85025; 85027; 93005; 94640; 94664; 99285; G0378; J1650; J1885; J2405; J2919; J3411; J3490; J7030